=== PATIENT | male | born 1975 | race Hispanic/Latino ===

== ENCOUNTER 2024-10-31 19:55 | Emergency (ER) | payer SELFPAY ==
[~2024-10-31] VITALS: Ht 167.6 cm; Wt 74.8 kg
[2024-10-31 19:55] VITALS: PULSE 66; RESP 16; TEMP 97.9
[2024-10-31 20:16] LABS: BASOPHILS % 0.3 % (0.0-1.0); EOSINOPHILS # (AUTO) 0.1 (0.0-0.4); HEMATOCRIT 48.9 % (38.2-49.6); HEMOGLOBIN 15.9 g/dL (14.0-18.0); LYMPHOCYTES # (AUTO) 2.3 (1.0-3.2); LYMPHOCYTES % 22.7 % (18.0-39.1); MEAN CORPUSCULAR HEMOGLOBIN 29.2 pg (28-32); MEAN CORPUSCULAR HGB CONC 32.5 g/dL (31-35); MEAN CORPUSCULAR VOLUME 89.9 fL (81-99); MONOCYTES # (AUTO) 0.8 (0.2-0.8); MONOCYTES % 7.6 % (4.4-11.3); NEUTROPHILS # (AUTO) 6.8 (2.1-6.9); NEUTROPHILS % 68.2 % (38.7-80.0); PLATELET COUNT 215 x10e3/uL (140-360); RED BLOOD COUNT 5.44 x10e6/uL (4.3-5.7); RED CELL DISTRIBUTION WIDTH 13.2 % (11.7-14.4); WHITE BLOOD COUNT 10.03 x10e3/uL (4.8-10.8)
[2024-10-31 20:18] LABS: CLARITY,URINE CLEAR (CLEAR); COLOR,URINE YELLOW (YELLOW); LEUKOCYTE ESTERASE ,URINE NEGATIVE (NEGATIVE); NITRITE,URINE NEGATIVE (NEGATIVE); PH,URINE 5.5 (5 - 7); PROTEIN,URINE DIPSTICK NEGATIVE (NEGATIVE)
[2024-10-31 20:19] LABS: BILIRUBIN,URINE NEGATIVE (NEGATIVE); GLUCOSE, URINE NEGATIVE (NEGATIVE); KETONES,URINE NEGATIVE (NEGATIVE); URINE UROBILINOGEN 0.2 mg/dL (0.2 - 1)
[2024-10-31] MEDS ORDERED: LIDOCAINE VISC 2% SOLN 15 ML UDC ONE (20:19)
[2024-10-31] MEDS ORDERED: ONDANSETRON HCL INJ 2MG/ML 2ML 2 MG/ML VIAL ONE (20:19)
[2024-10-31] MEDS ORDERED: BELLADONNA ALK/PHENOBARBITAL 5 ML UDC ONE (20:20)
[2024-10-31] MEDS ORDERED: SODIUM CHLORIDE 0.9% 1000ML 1,000 ML ONE (20:20)
[2024-10-31] MEDS ORDERED: MAGNESIUM/ALUMINUM/SIMETHICONE 30 ML UDC ONE (20:20)
[2024-10-31] MEDS: ONDANSETRON HCL INJ 2MG/ML 2ML 2 MG/ML VIAL IV STA (20:22)
[2024-10-31] MEDS: SODIUM CHLORIDE 0.9% 1000ML 1,000 ML IV STA (20:23)
[2024-10-31] MEDS: BELLADONNA ALK/PHENOBARBITAL 5 ML UDC PO ONE (20:23)
[2024-10-31] MEDS: MAGNESIUM/ALUMINUM/SIMETHICONE 30 ML UDC PO STA (20:23)
[2024-10-31] MEDS: LIDOCAINE VISC 2% SOLN 15 ML UDC PO STA (20:23)
[2024-10-31 20:26] LABS: RBC,URINE 0-5 /HPF (0-5); WBC,URINE (MAN) 0-5 /HPF (0-5)
[2024-10-31 20:43] LABS: ALBUMIN 4.3 g/dL (3.5-5.0); BILIRUBIN,TOTAL 0.6 mg/dL (0.2-1.2); CALCIUM 8.9 mg/dL (8.4-10.2); CREATININE, SERUM 1.22 mg/dL (0.72-1.25); TOTAL PROTEIN 8.8 g/dL (6.5-8.1)
[2024-10-31 20:49] LABS: TROPONIN I 0.007 ng/mL (0-0.300)
[2024-10-31] MEDS ORDERED: IOPAMIDOL 370 MG/ML 100 ML INFUS..BTL INJ ONE (20:51)
[2024-10-31] MEDS ORDERED: DICYCLOMINE HCL 20 MG TAB ONE (21:58)
[2024-10-31] MEDS ORDERED: AMOX TR-K CLV1 EAC2 PO (21:59)
[2024-10-31] MEDS ORDERED: ACETAMINOPHEN-1 EAC4 PO (21:59)
[2024-10-31] MEDS: DICYCLOMINE HCL 20 MG TAB PO STA (21:59)
[2024-10-31] MEDS ORDERED: ONDANSETRON ODT4 MG PO (21:59)
[2024-10-31 22:08] VITALS: BP 141/78; PULSE 60; RESP 17; TEMP 98.3; O2SAT 99
== END 2024-10-31 22:10 | disposition home or self-care (01) ==
LOC: ER 20:05
DX: R10.13 Epigastric pain (principal); K80.70 Calculus of gallbladder and bile duct without cholecystitis without obstruction; R11.0 Nausea; K76.0 Fatty (change of) liver, not elsewhere classified
CPT/HCPCS: 36415; 74177; 80053; 81001; 82550; 83690; 84484; 85025; 93005; 99284; J2405; J7030; Q9967

== ENCOUNTER 2024-11-05 00:01 | Emergency (ER) | payer SELFPAY ==
[~2024-11-05] VITALS: Ht 167.6 cm; Wt 74.8 kg
[~2024-11-05 00:01] MED LIST: ACETAMINOPHEN-1 EAC4 PO; AMOX TR-K CLV1 EAC2 PO; ONDANSETRON ODT4 MG PO
[2024-11-05 00:36] LABS: HEMATOCRIT 43.5 % (38.2-49.6); HEMOGLOBIN 14.4 g/dL (14.0-18.0); MEAN CORPUSCULAR HEMOGLOBIN 29.5 pg (28-32); MEAN CORPUSCULAR VOLUME 89.1 fL (81-99); RED BLOOD COUNT 4.88 x10e6/uL (4.3-5.7); WHITE BLOOD COUNT 7.37 x10e3/uL (4.8-10.8)
[2024-11-05 00:37] LABS: BASOPHILS % 0.3 % (0.0-1.0); EOSINOPHILS # (AUTO) 0.2 (0.0-0.4); EOSINOPHILS % 3.1 % (0.0-6.0); LYMPHOCYTES # (AUTO) 1.4 (1.0-3.2); LYMPHOCYTES % 19.5 % (18.0-39.1); MEAN CORPUSCULAR HGB CONC 33.1 g/dL (31-35); MONOCYTES # (AUTO) 0.8 (0.2-0.8); MONOCYTES % 10.2 % (4.4-11.3); NEUTROPHILS # (AUTO) 4.9 (2.1-6.9); NEUTROPHILS % 66.8 % (38.7-80.0); PLATELET COUNT 236 x10e3/uL (140-360); RED CELL DISTRIBUTION WIDTH 12.8 % (11.7-14.4)
[2024-11-05 01:07] LABS: POTASSIUM 3.9 mmol/L (3.5-5.1)
[2024-11-05 01:08] LABS: ANION GAP 13.9 mmol/L (8-16); CREATININE, SERUM 1.2 mg/dL (0.72-1.25)
[2024-11-05 01:17] LABS: ALBUMIN 3.8 g/dL (3.5-5.0); ALBUMIN/GLOBULIN RATIO 0.8 (0.8-2.0); BILIRUBIN,TOTAL 0.5 mg/dL (0.2-1.2); CALCIUM 9.2 mg/dL (8.4-10.2); TOTAL PROTEIN 8.5 g/dL (6.5-8.1)
[2024-11-05] MEDS ORDERED: ENULOSE10 GM/15 M PO (01:55)
[2024-11-05 02:07] VITALS: PULSE 73; RESP 17; TEMP 98.3; O2SAT 98
== END 2024-11-05 02:00 | disposition home or self-care (01) ==
LOC: ER 00:10
DX: R10.30 Lower abdominal pain, unspecified (principal); K59.00 Constipation, unspecified
CPT/HCPCS: 36415; 74018; 80053; 83690; 85025; 99283